=== PATIENT | male | born 1985 | race Caucasian/White ===

== ENCOUNTER 2020-02-28 14:58 | Outpatient (REF) | payer SELFPAY ==
[2020-02-28 14:59] VITALS: BP 127/80; PULSE 98; RESP 16; TEMP 36.2; O2SAT 98; BMI 27.7
--- NOTE | 2020-02-28 15:16 | ED.DCSUM_ITS ---
- ER Visit Summary Date of Service: 02/28/20 Chief Complaint: [Seizures] History of Present Illness: The patient is a 34 M [presents the emergency department complaint of seizures today times at least 4. Patient has known history of seizures since 2004. Patient states that he has been without his medications for the last 2 months. Patient normally takes Klonopin and phenobarbital. Patient states that he takes 90 mg of phenobarbital twice a day. Patient was seen at [facility] yesterday for seizures as well and was prescribed Klonopin. Patient went to nursing home last night and they will not give him benzos in the nursing home. Patient refused Keppra at the nursing home because he says that it makes his seizures worse. 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 He denies any illness otherwise. Denies any other medical history.] Please officers that accompany the patient state that patient typically will have whole body shaking for a couple of minutes and then his eyes will blink really fast. Patient with some confusion thereafter. Patient did have a CT scan of his brain yesterday while at [place]. Physical Examination: [HEENT-PERRLA, EOMI. Cranial nerves II through XII grossly intact. TMs clear. Mucous membranes moist. No adenopathy. Cardiovascular-regular rate and rhythm without murmur or ectopy Lungs-clear to auscultation, chest wall stable without crepitus or subcu emphysema Abdomen-normoactive bowel sounds, soft, nontender, no rebound or rigidity, no peritoneal signs. Neuro gkrt-wlmyhv-re-nose and heel turner testing within normal limits, negative Romberg, negative for drift, fundi benign Extremities-intact ?4, normal range of motion, normal pulses, atraumatic] Test Results: [CBC with differential was unremarkable. Chemistries unremarkable. Patient's LFTs slightly elevated with an alk phos of 138, ALT 81, AST 40.] Emergency Department Course and Treatment: [Patient received IV phenobarbital 1900 mg IV. He felt improved. He did not have any further seizure activity.] Treatment Plan: [We will be given a prescription for phenobarbital. Patient's plan is to be discharged from nursing home tomorrow and he will will be moving at the [facility]. Patient will try to establish with a neurologist there.] Disposition: [Discharged to nursing home in stable condition] Impression: [Seizure-recurrent] This note was generated with [employer] dictation software. It may contain incorrect words, spelling, and punctuation that were not noted in review of the chart prior to signing ED Disposition - Plan for ED Patient: Referrals: [facility],Out of [NON-STAFF] -
--- NOTE | 2020-02-28 15:58 | ED.RN ---
This nurse spoke with the MD about phenobarbital order and clarified that medication is to be given IV drip. Pharmacy called and notified of the clarification. Will continue to monitor.
[2020-02-28] MEDS: 0.9% Normal Saline 1,000 ML 150 ML IV (16:02)
[2020-02-28 16:04] LABS: Absolute Lymphocyte Count 1.96 X10^3/uL (0.83-4.51); Absolute Neutrophil Count 4.1 X10^3/uL (2.0-7.7); Basophil# 0.01 X10^3/uL; Basophil% 0.1 % (0-1); Eosinophil# 0.28 X10^3/uL; Hematocrit 42.3 % (40-54); Hemoglobin 13.3 g/dL (13.0-16.5); Lymphocyte # 1.96 X10^3/ul (4.0); Lymphocyte % 28.3 % (19-41); Mean Corp Hgb Conc 31.4 g/dL (32-36); Mean Corpuscular Hgb 28.1 pg (27.0-32.0); Mean Corpuscular Volume 89.2 fL (80-94); Monocyte# 0.54 X10^3/uL; Monocyte% 7.8 % (0-10); NRBC Flagged by Analyzer 0 % (0-5); Neutrophil # 4.11 X10^3/uL (2.7-7.7); Neutrophil % 59.5 % (47-70); Platelet Count 194 K/mm3 (150-450); RBC Distribution Width CV 14.6 % (11.6-14.6); RBC Distribution Width SD 47.8 fl (35.1-43.9); Red Blood Count 4.74 M/mm3 (4.6-6.2); White Blood Count 6.9 K/mm3 (4.4-11.0)
[2020-02-28 16:17] LABS: ALB/GLOB Ratio 0.9 RATIO (0.9-2.4); AST(SGOT) 40 U/L (15-37); Alanine Aminotransfer ALT/SGPT 81 U/L (16-61); Alkaline Phosphatase 138 U/L (45-117); Anion Gap 4 (5-15); BUN 10 mg/dL (7-18); BUN/Creat Ratio 11.6 RATIO (10-20); Calcium,Total 8.8 mg/dL (8.5-10.1); Chloride 110 mmol/L (98-107); Creatinine, Serum 0.86 mg/dL (0.70-1.30); EST Glomerular Filtration Rate 106 mL/min (>60); Est Glom Filt Rate - Afr Amer 128 mL/min (>60); Globulin 3.5 g/dL (2.2-4.2); Glucose 99 mg/dL (74-106); Potassium 3.9 mmol/L (3.5-5.1); Protein, Total 6.5 g/dL (6.4-8.2); Sodium Level 143 mmol/L (136-145)
--- NOTE | 2020-02-28 17:00 | ED.DEP ---
ED Disposition - Plan for ED Patient: Instructions: ED Seizure Recurrent Adult Prescriptions: Phenobarbital 90 mg PO BID #180 tab Prescription Printed Referrals: [facility],Out of [NON-STAFF] - Additional Instructions: see a neurologist
[2020-02-28 17:25] VITALS: BP 122/76; PULSE 84; RESP 17; O2SAT 98
== END 2020-02-28 17:28 ==
LOC: ED 14:58
PROVIDERS: Visit Provider Emergency Medicine
DX: R56.9 Unspecified convulsions (principal); F17.200 Nicotine dependence, unspecified, uncomplicated
CPT/HCPCS: 80053; 85025; J7030; A4216